=== PATIENT | female | born 1995 ===

== ENCOUNTER 2017-01-02 21:40 | Emergency (ER) | payer OTHER ==
[2017-01-02 21:44] VITALS: BP 119/69; PULSE 91; RESP 16; TEMP 98.5; O2SAT 98
--- NOTE | 2017-01-02 22:10 | ED PDOC ---
HPI:Nausea, Vomiting, Diarrhea Additional Complaint(s): 21yo F with no PMHx c/o diarrhea. Diarrhea x2 days, BM x3 yesterday and >10x today, started after eating fudge that was moldy. Last BM 1 hour ago. a/w nausea and crampy abd pain. Tolerating PO, eating toast and drinking water, last PO intake 2 hr ago. Last LMP 1 month ago. Denies fever, chills, vomiting. <Lily Joel - Last Filed: 01/03/17 00:15> <Ricco Farfan - Last Filed: 01/03/17 00:27> Time Seen by Provider: 01/02/17 21:52 Chief Complaint (Nursing): GI Problem Supervising Attending Note - Attestation: I have personally seen and examined this patient.: Yes I have fully participated in the care of the patient.: Yes I have reviewed all pertinent clinical information, including history, physical exam and plan: Yes <Ricco Farfan - Last Filed: 01/03/17 00:27> Past Medical History Reviewed: Historical Data, Nursing Documentation, Vital Signs Vital Signs: Last Vital Signs Temp 98.5 F 01/02/17 21:43 Pulse 91 H 01/02/17 21:43 Resp 16 01/02/17 21:43 BP 119/69 01/02/17 21:43 Pulse Ox 98 01/02/17 21:43 - Medical History PMH: No Chronic Diseases - Surgical History Surgical History: No Surg Hx - Family History Family History: States: Unknown Family Hx - Social History Current smoker - smoking cessation education provided: No Alcohol: None Drugs: Denies <Lily Joel - Last Filed: 01/03/17 00:15> Vital Signs: Last Vital Signs Temp 98.5 F 01/02/17 21:43 Pulse 91 H 01/02/17 21:43 Resp 16 01/02/17 21:43 BP 119/69 01/02/17 21:43 Pulse Ox 98 01/03/17 00:17 <Ricco Farfan - Last Filed: 01/03/17 00:27> - Allergies Allergies/Adverse Reactions: Allergies Allergy/AdvReac Type Severity Reaction Status Date / Time Penicillins Allergy ANAPHYLAXIS Verified 01/02/17 21:43 Review of Systems ROS Statement: Except As Marked, All Systems Reviewed And Found Negative Gastrointestinal: Positive for: Nausea, Abdominal Pain, Diarrhea <Lily Joel - Last Filed: 01/03/17 00:15> Physical Exam - Reviewed Nursing Documentation Reviewed: Yes Vital Signs Reviewed: Yes - Physical Exam Appears: Positive for: Non-toxic, No Acute Distress Head Exam: Positive for: ATRAUMATIC, NORMAL INSPECTION Skin: Positive for: Warm, Dry Eye Exam: Positive for: Normal appearance. Negative for: Scleral icterus ENT: Positive for: Other (moist mucous membranes). Negative for: Pharyngeal Erythema Neck: Positive for: Normal, Supple Cardiovascular/Chest: Positive for: Regular Rate, Rhythm. Negative for: Murmur Respiratory: Positive for: Normal Breath Sounds. Negative for: Wheezing Gastrointestinal/Abdominal: Positive for: Bowel Sounds (hyperactive), Soft, Tenderness (crampy) Back: Positive for: Normal Inspection. Negative for: Vertebral Tenderness Extremity: Positive for: Capillary Refill (3 sec). Negative for: Tenderness, Pedal Edema Lymphatic: Positive for: Normal Exam. Negative for: Adenopathy Neurologic/Psych: Positive for: Alert, Oriented <Lily Joel - Last Filed: 01/03/17 00:15> - ECG O2 Sat by Pulse Oximetry: 98 <Lily - Last Filed: 01/03/17 00:15> Medical Decision Making Medical Decision Makin DDx gastroenteritis, gastritis tolerating PO zofran 4mg PO x1 Bentyl 10mg PO x1 loperamide 4mg PO x1 urine dip urine preg reassessment 0015 nausea improved diarrhea and crampy abd pain remain relatively unchanged tolerating PO ready to go home d/c home in stable condition, ED precautions if not tolerating PO with continued diarrhea <Lily Joel - Last Filed: 01/03/17 00:15> Disposition - Disposition Disposition Time: 00:17 <Lily Joel - Last Filed: 01/03/17 00:15> <Ricco Farfan - Last Filed: 01/03/17 00:27> - Clinical Impression Clinical Impression: Gastroenteritis - Disposition Condition: STABLE
[2017-01-03] MEDS ORDERED: Alum-Mag Hydrox-Simethicone Susp (30 mL) PO ONE (00:08)
[2017-01-03] MEDS ORDERED: Alum-Mag Hydrox-Simethicone Susp (30 mL) ONE (00:12)
== END 2017-01-03 00:28 | disposition home or self-care (01) ==
LOC: H.ER 21:40
DX: K52.9 Noninfective gastroenteritis and colitis, unspecified (principal); R11.0 Nausea; R10.9 Unspecified abdominal pain; Z88.0 Allergy status to penicillin